=== PATIENT | female | born 1985 | race Two or more races ===

== ENCOUNTER 2019-08-16 11:09 | Emergency (ER) | payer MEDICAID ==
[~2019-08-16] VITALS: Ht 162.6 cm; Wt 93.0 kg
[2019-08-16 12:20] VITALS: BP 140/77
[2019-08-16] MEDS ORDERED: WARF4TAB40 PO (12:22)
[2019-08-16] MEDS ORDERED: LIP40 PO (12:22)
[2019-08-16] MEDS ORDERED: ALBUTEROL (0.083%) 2.5MG/3ML NEB HHN STA (13:20)
[2019-08-16] MEDS ORDERED: IPRATROPIUM BROMIDE (0.02%) 0.5MG/2.5ML NEB HHN STA (13:20)
== END 2019-08-16 14:39 | disposition home or self-care (01) ==
LOC: ER 11:09
DX: J06.9 Acute upper respiratory infection, unspecified (principal); J45.909 Unspecified asthma, uncomplicated; I10 Essential (primary) hypertension; Z86.73 Personal history of transient ischemic attack (TIA), and cerebral infarction without residual deficits; Z88.6 Allergy status to analgesic agent; Z79.899 Other long term (current) drug therapy
CPT/HCPCS: 71045; 81025; 87804; 94640; 99284; Z7610

== ENCOUNTER 2021-10-01 07:36 | Emergency (ER) | payer MEDICAID ==
[~2021-10-01] VITALS: Ht 165.1 cm; Wt 70.0 kg
[~2021-10-01 07:36] MED LIST: LIP40 PO; WARF4TAB40 PO
[2021-10-01] MEDS ORDERED: LEVETIRACETAM 1000MG PREMIX 100 ML IV ONE (08:00)
[2021-10-01 08:29] LABS: BASOPHILS % 0.5 % (0.0-2.0); EOSINOPHILS % 3.3 % (0.0-5.0); HEMATOCRIT. 31.9 % (36.0-48.0); HEMOGLOBIN. 10.3 g/dL (12.0-16.0); LYMPHOCYTES % 29.6 % (20.0-50.0); MEAN CORPUSCULAR HEMOGLOBIN 23.8 pg (28.0-32.0); MEAN CORPUSCULAR VOLUME 73.9 fL (81.0-99.0); MONOCYTES % 5.4 % (2.0-8.0); NEUTROPHILS % 61.2 % (40.0-76.0); PLATELET 500 x1000/uL (130-400); RED BLOOD CELL COUNT 4.32 mill/uL (4.2-5.4); RED CELL DISTRIBUTION WIDTH 16.1 % (11.6-14.6)
[2021-10-01 08:33] LABS: CHLORIDE 107 mEq/L (98-107)
[2021-10-01 08:37] LABS: ETHANOL BLOOD < 10 mg/dL
[2021-10-01] MEDS ORDERED: POTASSIUM CHLORIDE 20MEQ TABLET SR PO ONE (09:00)
[2021-10-01] MEDS ORDERED: ONDANSETRON HCL 4MG TABLET PO ONE (11:00)
[2021-10-01 12:00] VITALS: BP 106/71
== END 2021-10-01 12:56 | disposition home or self-care (01) ==
LOC: ER 07:36
DX: G40.909 Epilepsy, unspecified, not intractable, without status epilepticus (principal); E87.6 Hypokalemia; I10 Essential (primary) hypertension; J45.909 Unspecified asthma, uncomplicated; Z86.73 Personal history of transient ischemic attack (TIA), and cerebral infarction without residual deficits
CPT/HCPCS: 36415; 70450; 72125; 80053; 80320; 85025; 96374; 99284; J1953; G0480

== ENCOUNTER 2022-03-19 16:42 | Emergency (ER) | payer MEDICAID ==
[~2022-03-19] VITALS: Ht 165.1 cm; Wt 91.0 kg
[2022-03-19] MEDS ORDERED: SODIUM CHLORIDE 0.9% 1,000 ML IV ONE (17:00)
[2022-03-19] MEDS ORDERED: LEVETIRACETAM 1000MG PREMIX 100 ML IV ONE (17:00)
[2022-03-19 17:46] LABS: BASOPHILS % 0.5 % (0.0-2.0); EOSINOPHILS % 1.4 % (0.0-5.0); HEMATOCRIT. 28.6 % (36.0-48.0); HEMOGLOBIN. 8.9 g/dL (12.0-16.0); LYMPHOCYTES % 29.5 % (20.0-50.0); MEAN CORPUSCULAR HEMOGLOBIN 21.3 pg (28.0-32.0); MEAN CORPUSCULAR VOLUME 68.5 fL (81.0-99.0); MONOCYTES % 7.5 % (2.0-8.0); NEUTROPHILS % 61.1 % (40.0-76.0); PLATELET 365 x1000/uL (130-400); RED BLOOD CELL COUNT 4.17 mill/uL (4.2-5.4); RED CELL DISTRIBUTION WIDTH 17.6 % (11.6-14.6)
[2022-03-19 17:50] LABS: CHLORIDE 109 mEq/L (98-107)
[2022-03-19 17:58] LABS: CREATINE KINASE 70 IU/L (26-192)
[2022-03-19 18:21] LABS: PLATELET ESTIMATE NORMAL
[2022-03-19 18:56] LABS: CLARITY URINE TURBID (CLEAR); COLOR URINE YELLOW (YELLOW); KETONES URINE 1+ (NEGATIVE); LEUKOCYTE ESTERASE URINE NEGATIVE (NEGATIVE); NITRITE URINE NEGATIVE (NEGATIVE); OCCULT BLOOD URINE 3+ (NEGATIVE); PROTEIN URINE TRACE (NEGATIVE); SPECIFIC GRAVITY URINE 1.016 (1.005-1.030)
[2022-03-19] MEDS ORDERED: LEVETIRACETAM 500MG PREMIX 100 ML IV ONE (20:00)
[2022-03-19] MEDS ORDERED: POTASSIUM CHLORIDE 20MEQ TABLET SR PO ONE (20:00)
[2022-03-20 18:35] VITALS: BP 154/65
== END 2022-03-20 19:24 | disposition home or self-care (01) ==
LOC: ER 16:42
DX: G40.909 Epilepsy, unspecified, not intractable, without status epilepticus (principal); E87.6 Hypokalemia; R00.1 Bradycardia, unspecified; I69.354 Hemiplegia and hemiparesis following cerebral infarction affecting left non-dominant side; Z99.3 Dependence on wheelchair; Z60.2 Problems related to living alone
CPT/HCPCS: 36415; 70450; 80053; 81003; 82550; 85025; 93005; 96365; 99285; J1953; J7030

== ENCOUNTER 2022-06-11 12:14 | Inpatient (IN) | payer MEDICAID ==
[~2022-06-11] VITALS: Ht 160 cm; Wt 103.9 kg
[2022-06-11 13:09] LABS: BASOPHILS % 0.9 % (0.0-2.0); EOSINOPHILS % 0.2 % (0.0-5.0); HEMATOCRIT. 34.4 % (36.0-48.0); HEMOGLOBIN. 10.6 g/dL (12.0-16.0); LYMPHOCYTES % 12.4 % (20.0-50.0); MEAN CORPUSCULAR VOLUME 71.3 fL (81.0-99.0); MEAN PLATELET VOLUME 8.4 fl (7.4-10.4); MONOCYTES % 4.1 % (2.0-8.0); NEUTROPHILS % 82.4 % (40.0-76.0); PLATELET 390 x1000/uL (130-400); RED BLOOD CELL COUNT 4.82 mill/uL (4.2-5.4); RED CELL DISTRIBUTION WIDTH 22.9 % (11.6-14.6)
[2022-06-11 13:15] LABS: CHLORIDE 108 mEq/L (98-107)
[2022-06-11 13:21] LABS: ETHANOL BLOOD < 10 mg/dL
[2022-06-11 13:51] LABS: INR 1.4; PROTHROMBIN TIME 15.1 sec (9.6-11.0)
[2022-06-11 13:53] LABS: PLATELET ESTIMATE NORMAL
[2022-06-11] MEDS ORDERED: LEVETIRACETAM 1000MG PREMIX 100 ML IV ONE (14:45)
[2022-06-11] MEDS ORDERED: ONDANSETRON HCL 4MG/2ML INJ IV ONE (15:45)
[2022-06-11 16:31] LABS: CLARITY URINE TURBID (CLEAR); COLOR URINE YELLOW (YELLOW); KETONES URINE 1+ (NEGATIVE); LEUKOCYTE ESTERASE URINE 2+ (NEGATIVE); NITRITE URINE NEGATIVE (NEGATIVE); OCCULT BLOOD URINE 1+ (NEGATIVE); PH URINE 5.5 (4.5-8.0); PROTEIN URINE 2+ (NEGATIVE); SPECIFIC GRAVITY URINE 1.017 (1.005-1.030); UROBILINOGEN URINE 0.2 E.U./dL (0.2-1.0)
[2022-06-11 16:47] LABS: *AMPHETAMINES SCREEN URINE NEGATIVE (NEGATIVE); *BARBITURATES SCREEN URINE NEGATIVE (NEGATIVE); *BENZODIAZEPINES SCREEN URINE NEGATIVE (NEGATIVE); *COCAINE SCREEN URINE NEGATIVE (NEGATIVE); METHADONE URINE SCREEN NEGATIVE (NEGATIVE); OPIATES URINE SCREEN NEGATIVE (NEGATIVE); PHENCYCLIDINE URINE SCREEN NEGATIVE (NEGATIVE)
[2022-06-11 16:49] LABS: CANNABINOID URINE SCREEN PRESUMTIVE POSITIVE (NEGATIVE)
[2022-06-11] MEDS ORDERED: CLONIDINE 0.1MG TABLET PO PRN (19:30)
[2022-06-11] MEDS ORDERED: LORAZEPAM 0.5MG TABLET PO PRN (19:30)
[2022-06-11] MEDS ORDERED: DOCUSATE SODIUM 100MG CAPSULE PO PRN (19:30)
[2022-06-11] MEDS ORDERED: ONDANSETRON HCL 4MG/2ML INJ IV PRN (19:30)
[2022-06-11] MEDS ORDERED: HYDROCODONE/ACETAMINOPHEN 5/325MG TABLET PO PRN (19:30)
[2022-06-11] MEDS ORDERED: ACETAMINOPHEN 325MG TABLET PO PRN ×2 (19:30)
[2022-06-11 19:57] LABS: TOTAL IRON BINDING CAPACITY 490 ug/dL (250-450)
[2022-06-11] MEDS: CEFTRIAXONE 1 G PREMIX 50 ML IV NR ×2 (20:58→22:28)
[2022-06-11] MEDS ORDERED: TRAM50TA3 PO (21:20)
[2022-06-11] MEDS ORDERED: FERR325T6 PO (21:35)
[2022-06-11] MEDS ORDERED: ONDA4TAB11 PO (21:37)
[2022-06-11] MEDS ORDERED: LEVE750T4 PO (21:38)
[2022-06-11] MEDS ORDERED: APIX5TAB PO (21:39)
[2022-06-11] MEDS ORDERED: ATOR40TA70 PO (21:41)
[2022-06-11] MEDS ORDERED: GABA-532 PO (21:41)
[2022-06-11] MEDS ORDERED: [UNRECOGNIZED DRUG - CODE] PO (21:46)
[2022-06-11] MEDS ORDERED: POLY510P31 PO (21:50)
[2022-06-12 09:07] VITALS: BP 136/56
[2022-06-12 09:44] VITALS: BP 123/79
[2022-06-12] MEDS: LEVETIRACETAM 250MG TABLET PO SCH ×2 (12:00→17:00)
[2022-06-12 12:05] VITALS: BP 101/36
[2022-06-12 12:34] VITALS: BP 134/77
[2022-06-12] MEDS: GABAPENTIN 300MG CAPSULE PO SCH ×2 (13:00→18:44)
[2022-06-12 16:13] VITALS: BP 130/90
[2022-06-12 20:05] VITALS: BP 120/68
[2022-06-12] MEDS: LEVETIRACETAM 500MG TABLET PO SCH (21:21)
[2022-06-12] MEDS: ATORVASTATIN CALCIUM 40MG TABLET PO SCH (21:21)
[2022-06-12] MEDS: CEFTRIAXONE 1,000 MG in DEXTROSE 5% WATER 50 ML IV SCH (21:22)
[2022-06-13] VITALS: BP 133/86
[2022-06-13 04:00] VITALS: BP 139/70
[2022-06-13] MEDS: LEVETIRACETAM 500MG TABLET PO SCH ×2 (07:37→21:05)
[2022-06-13] MEDS: GABAPENTIN 300MG CAPSULE PO SCH ×3 (07:37→17:00)
[2022-06-13] MEDS: LEVETIRACETAM 250MG TABLET PO SCH (07:37)
[2022-06-13 08:00] VITALS: BP 127/82
[2022-06-13 12:00] VITALS: BP 124/73
[2022-06-13 16:00] VITALS: BP 137/72
[2022-06-13 19:31] VITALS: BP 130/91
[2022-06-13] MEDS: ATORVASTATIN CALCIUM 40MG TABLET PO SCH (21:04)
[2022-06-13] MEDS: CEFTRIAXONE 1,000 MG in DEXTROSE 5% WATER 50 ML IV SCH (21:15)
[2022-06-14 05:52] VITALS: BP 140/79
[2022-06-14 08:32] VITALS: BP 126/73
[2022-06-14] MEDS: GABAPENTIN 300MG CAPSULE PO SCH ×2 (09:14→12:24)
[2022-06-14] MEDS: LEVETIRACETAM 500MG TABLET PO SCH (09:14)
[2022-06-14 11:21] VITALS: BP 132/67
[2022-06-14] MEDS ORDERED: KEPP500 PO (12:17)
[2022-06-14 13:43] VITALS: BP 132/67
[2022-06-14 15:51] VITALS: BP 107/68
== END 2022-06-14 15:50 | disposition home or self-care (01) | DRG 53 ==
LOC: ER 12:14 → EDBEDREQ 16:54 → MICUSO 23:18 → 3WST 23:18 → UNDOADMIN 23:18
PROVIDERS: ADMIT Internal Medicine; ATTEND Internal Medicine
DX: G40.909 Epilepsy, unspecified, not intractable, without status epilepticus (principal); D50.9 Iron deficiency anemia, unspecified; I10 Essential (primary) hypertension; J45.909 Unspecified asthma, uncomplicated; R80.9 Proteinuria, unspecified; R82.71 Bacteriuria; Z86.73 Personal history of transient ischemic attack (TIA), and cerebral infarction without residual deficits; Z79.899 Other long term (current) drug therapy; Z88.8 Allergy status to other drugs, medicaments and biological substances
CPT/HCPCS: 36415; 80053; 80305; 80320; 81003; 82542; 82728; 83540; 83550; 85025; 93005; 99285; J0696; J1953; J2405; J7060; G0480

== ENCOUNTER 2022-06-15 18:10 | Emergency (ER) | payer MEDICAID ==
[~2022-06-15] VITALS: Ht 165.1 cm; Wt 80.0 kg
[~2022-06-15 18:10] MED LIST changes: +APIX5TAB PO; +ATOR40TA70 PO; +FERR325T6 PO; +GABA-532 PO; +KEPP500 PO; -LIP40 PO; +ONDA4TAB11 PO; +POLY510P31 PO; +TRAM50TA3 PO; -WARF4TAB40 PO
[2022-06-15] MEDS ORDERED: SODIUM CHLORIDE 0.9% 1,000 ML IV ONE (21:30)
[2022-06-15 21:56] LABS: BASOPHILS % 0.5 % (0.0-2.0); EOSINOPHILS % 0.3 % (0.0-5.0); HEMATOCRIT. 32.5 % (36.0-48.0); HEMOGLOBIN. 10.2 g/dL (12.0-16.0); LYMPHOCYTES % 14.4 % (20.0-50.0); MEAN CORPUSCULAR HEMOGLOBIN 22.4 pg (28.0-32.0); MEAN CORPUSCULAR VOLUME 71.7 fL (81.0-99.0); MONOCYTES % 4.4 % (2.0-8.0); NEUTROPHILS % 80.4 % (40.0-76.0); PLATELET 367 x1000/uL (130-400); RED BLOOD CELL COUNT 4.54 mill/uL (4.2-5.4); RED CELL DISTRIBUTION WIDTH 23.8 % (11.6-14.6)
[2022-06-15 22:12] LABS: CHLORIDE 116 mEq/L (98-107)
[2022-06-15 22:18] LABS: HCG SCREEN NEGATIVE
[2022-06-15 22:22] LABS: ETHANOL BLOOD < 10 mg/dL
[2022-06-15 22:27] LABS: PLATELET ESTIMATE NORMAL
[2022-06-16] MEDS ORDERED: LEVETIRACETAM 500MG TABLET PO ONE (09:00)
[2022-06-16 16:09] VITALS: BP 132/65
== END 2022-06-16 16:09 | disposition home or self-care (01) ==
LOC: ER 18:10
DX: R55 Syncope and collapse (principal); I10 Essential (primary) hypertension; I69.954 Hemiplegia and hemiparesis following unspecified cerebrovascular disease affecting left non-dominant side; E78.5 Hyperlipidemia, unspecified; D64.9 Anemia, unspecified; J45.909 Unspecified asthma, uncomplicated; G40.909 Epilepsy, unspecified, not intractable, without status epilepticus; Z99.3 Dependence on wheelchair; Z88.5 Allergy status to narcotic agent; Z79.899 Other long term (current) drug therapy
CPT/HCPCS: 36415; 71045; 80053; 80320; 83880; 84484; 84703; 85025; 93005; 96360; 99285; J7030; G0480

== ENCOUNTER 2022-08-17 08:56 | Emergency (ER) | payer MEDICAID ==
[~2022-08-17] VITALS: Ht 165.1 cm; Wt 90.0 kg
[2022-08-17] MEDS ORDERED: SODIUM CHLORIDE 0.9% 1,000 ML IV ONE (09:45)
[2022-08-17 10:47] LABS: BASOPHILS % 0.7 % (0.0-2.0); EOSINOPHILS % 0.1 % (0.0-5.0); HEMOGLOBIN. 11.2 g/dL (12.0-16.0); LYMPHOCYTES % 13.2 % (20.0-50.0); MEAN CORPUSCULAR HEMOGLOBIN 22.6 pg (28.0-32.0); MEAN CORPUSCULAR VOLUME 72.6 fL (81.0-99.0); MEAN PLATELET VOLUME 7.9 fl (7.4-10.4); MONOCYTES % 4.1 % (2.0-8.0); NEUTROPHILS % 81.9 % (40.0-76.0); PLATELET 373 x1000/uL (130-400); RED BLOOD CELL COUNT 4.95 mill/uL (4.2-5.4); RED CELL DISTRIBUTION WIDTH 19.6 % (11.6-14.6)
[2022-08-17 11:00] LABS: CHLORIDE 110 mEq/L (98-107)
[2022-08-17 11:03] LABS: PROTHROMBIN TIME 10.4 sec (9.6-11.0)
[2022-08-17 11:10] LABS: CREATINE KINASE 238 IU/L (26-192); ETHANOL BLOOD < 10 mg/dL
[2022-08-17] MEDS ORDERED: LEVETIRACETAM 500MG TABLET PO ONE (12:45)
[2022-08-18 08:52] VITALS: BP 142/76
[2022-08-19] MEDS ORDERED: LEVETIRACETAM 500MG TABLET PO ONE (09:00)
[2022-08-19] MEDS ORDERED: LEVETIRACETAM 500MG TABLET PO SCH (09:15)
[2022-08-19] MEDS ORDERED: LEVETIRACETAM 500MG TABLET PO NR (11:00)
== END 2022-08-19 13:29 | disposition home or self-care (01) ==
LOC: ER 08:56
DX: R56.9 Unspecified convulsions (principal); F12.10 Cannabis abuse, uncomplicated; I10 Essential (primary) hypertension; J45.909 Unspecified asthma, uncomplicated; Z91.14 Patient's other noncompliance with medication regimen; Z86.73 Personal history of transient ischemic attack (TIA), and cerebral infarction without residual deficits
CPT/HCPCS: 36415; 70450; 80053; 80320; 82550; 84484; 85025; 85610; 93005; 96360; 96361; 99285; J7030; G0480